=== PATIENT | male | born 1975 | race Caucasian/White ===

== ENCOUNTER 2018-10-31 06:15 | Inpatient (IN) | payer OTHER ==
[2018-10-27 15:41] VITALS: BMI 33.9
[2018-10-31] MEDS ORDERED: fentaNYL CITRATE 250 MCG/5 ML VIAL ONE (07:18)
[2018-10-31] MEDS ORDERED: DEXAMETHASONE SOD PHOSPHATE 4 MG/1 ML VIAL ONE (07:19)
[2018-10-31] MEDS ORDERED: PROPOFOL 20 ML ONE ×19 (07:19→11:54)
[2018-10-31] MEDS ORDERED: MIDAZOLAM HCL 2 MG/2 ML SINGLE DOSE VIAL ONE (07:19)
[2018-10-31] MEDS ORDERED: SUCCINYLCHOLINE CHLORIDE 200 MG/10 ML VIAL ONE (07:19)
[2018-10-31] MEDS ORDERED: ONDANSETRON 4 MG/2 ML VIAL ONE (07:19)
[2018-10-31] MEDS ORDERED: ROCURONIUM BROMIDE 50 MG/5 ML VIAL ONE ×2 (07:19→09:28)
[2018-10-31] MEDS ORDERED: LIDOCAINE HCL/PF 2% SDV 5ML VIAL ONE (07:19)
[2018-10-31] MEDS ORDERED: BUPIVACAINE HCL/PF 0.25% (2.5MG/ML) 10 ML VIAL ONE ×2 (07:45→07:50)
[2018-10-31] MEDS ORDERED: HEPARIN NA (PORCINE) 5,000 UNITS/ML 1ML VIAL ONE ×2 (07:45→07:50)
[2018-10-31] MEDS ORDERED: BENZOIN TINCTURE SWABSTICK TP ONE ×2 (07:45→07:51)
[2018-10-31] MEDS ORDERED: THROMBIN (BOVINE) 5,000 UNIT VIAL TP ONE ×3 (07:46→09:32)
[2018-10-31] MEDS ORDERED: TRANEXAMIC ACID 1000 MG/10 ML VIAL ONE ×2 (07:51→10:11)
[2018-10-31] MEDS ORDERED: BUPIVACAINE HCL/PF 0.5% (5MG/ML) 10 ML VIAL ONE (07:51)
[2018-10-31] MEDS ORDERED: VANCOMYCIN 1,000 MG VIAL (RESTRICTED TO ID ONLY) ONE (07:51)
[2018-10-31] MEDS ORDERED: ceFAZolin SODIUM 1 GM VIAL ONE ×2 (07:51→11:19)
[2018-10-31] MEDS ORDERED: VANCOMYCIN 1,000 MG VIAL (RESTRICTED TO ID ONLY) IVPB ONE (07:55)
[2018-10-31] MEDS ORDERED: ceFAZolin SODIUM 1 GM VIAL IVPB ONE ×2 (08:20→11:22)
[2018-10-31] MEDS ORDERED: BUPIVACAINE LIPOSOME/PF (EXPAREL) 266 MG/20 ML VIAL NR ONE (08:30)
[2018-10-31] MEDS ORDERED: BUPIVACAINE HCL/PF 0.25% (2.5MG/ML) 10 ML VIAL IJ ONE ×2 (09:32→11:54)
[2018-10-31] MEDS ORDERED: BUPIVACAINE LIPOSOME/PF (EXPAREL) 266 MG/20 ML VIAL IJ ONE ×2 (09:32→11:54)
[2018-10-31 11:23] LABS: MCH 29.9 pg (25.7-33.7); MCHC 34.7 g/dl (32.0-35.9); MEAN CELL VOLUME 86.4 fl (80-96); MEAN PLT VOLUME 12.9 fl (7.5-11.1); RDW 14.3 % (11.9-15.9); WHITE BLOOD COUNT 3.2 K/mm3 (4.0-10.0)
[2018-10-31 11:27] LABS: RBC 7.41 M/mm3 (4.00-5.60)
[2018-10-31 11:32] LABS: HEMOGLOBIN 22.2 GM/dL (11.7-16.9)
[2018-10-31 11:51] LABS: PLATELET COUNT 14 K/MM3 (134-434)
[2018-10-31] MEDS ORDERED: NEOSTIGMINE METHYLSULFATE 0.5 MG/1 ML - 10 ML MDV ONE (12:36)
[2018-10-31] MEDS ORDERED: GLYCOPYRROLATE 0.2 MG/1 ML VIAL ONE (12:37)
--- NOTE | 2018-10-31 13:05 | PN ---
Progress Note (short form) - Note Progress Note: 43M s/p L4, L5, S1 laminectomies; L3 laminotomy; L4-L5, L5-S1 discectomies; L4- L5, L5-S1 PLIF; insertion L4-L5, L5-S1 biomechanical devices; L4-L5, L5-S1 posterior arthrodesis; L4-L5, L5-S1 posterior instrumentation POD #0. -Pain control: per anaesthesia team; recommend COMPUTER NUMERICAL CONTROL OPERATOR; No NSAID's. -DVT PPx: - Mechanical only: BERITN's, SCD's. -Incentive spirometry q15min. -PT/OT/Rehab, OOB. -WBAT B/L LE. -q4h B/L LE NV checks. -Post-op antibiotics x 2 doses. -NPO until flatus. -f/u AM labs. -f/u drain output. -d/c Boland catheter when patient ambulating comfortably. -Care per ICU & medical hospitalist teams. -No bending, lifting more than 5lbs, or twisting x 6 months. -[facility] [place] [facility]; call for appointment; . -Will follow. Go Frias MD (Orthopaedic Surgery).
--- NOTE | 2018-10-31 13:09 | OP ---
Operative Note - Note: Operative Date: 10/31/18 Pre-Operative Diagnosis: 1. 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 2. L4-L5, L5-S1 stenosis with neurogenic claudication. 3. Segmental instability L4-S1 Operation: 1. L4, L5, S1 laminectomies. 2. L3 laminotomy. 3. L4-L5, L5-S1 discectomies. 4. L4-L5, L5-S1 PLIF. 5. Insertion L4-L5, L5-S1 biomechanical devices. 6. L4-L5, L5-S1 posterior arthrodesis. 7. L4-L5, L5-S1 posterior instrumentation. 8. Bone autograft. 9. Bone allograft. 10. Bone marrow aspiration. 11. Intra-operative biplanar fluoroscopy. 12. Intra-operative neural monitoring Post-Operative Diagnosis: Same as Pre-op Surgeon: Go Frias Repairer Maintenance Building: Wallace Frias Anesthesiologist/DAIRY TECHNOLOGIST: Alber Lua Anesthesia: General Specimens Removed: L4-L5, L5-S1 discs Estimated Blood Loss (mls): 1,200 Drains & Tubes with Location: 1 x superficial HemoVac Blood Volume Replaced (mls): 500 (Cell saver) Fluid Volume Replaced (mls): 200 (Crystalloid) Operative Report Dictated: Yes
[2018-10-31] MEDS ORDERED: diazePAM CARPU-JECT 10 MG/2 ML DISP.SYRIN IVPUSH PRN (13:11)
[2018-10-31] MEDS ORDERED: ONDANSETRON 4 MG/2 ML VIAL IVPUSH PRN (13:11)
[2018-10-31] MEDS ORDERED: HYDROmorphone *PCA* 10MG/50ML DISP.SYRIN PCA ONE ×2 (13:16→13:20)
[2018-10-31] MEDS ORDERED: ACETAMINOPHEN 1000 MG/100 ML VIAL (NON FORMULARY) IVPB ONE (13:30)
[2018-10-31] MEDS: LACTATED RINGERS SOLUTION 1,000 ML IV SCH ×2 (16:05→21:48)
--- NOTE | 2018-10-31 16:42 | CONSULT ---
Consultation: REQUESTING PROVIDER: Go Frias CONSULT REQUEST: We have been asked to medically evaluate this patient for s/p L3-S1 spinal Sx. HISTORY OF PRESENT ILLNESS: Patient is a 43 y/o M w/ PMHx chronic back pain s/p C3-C4 fusion w/ Dr. Frias 2 y/a, TMJ syndrome, migraines, GERD, HTN (not on medication w/ PCP's agreement), GERD, POD 0 s/p L4, L5, S1 laminectomies; L3 laminotomy; L4-L5, L5-S1 discectomies; L4-L5, L5-S1 PLIF; insertion L4-L5, L5-S1 biomechanical devices; L4-L5, L5-S1 posterior arthrodesis; L4-L5, L5-S1 posterior instrumentation. Awake and alert from PACU. On COAT PRESSER for pain control. Denies nausea. No other complaints. REVIEW OF SYSTEMS: As per HPI PHYSICAL EXAMINATION Vital Signs - 24 hr 10/31/18 10/31/18 10/31/18 06:48 13:07 13:20 Temperature 97.6 F 98.1 F Pulse Rate 77 80 62 Respiratory 20 16 16 Rate Blood Pressure 138/78 101/56 L 93/50 L O2 Sat by Pulse 99 98 98 Oximetry (%) 10/31/18 10/31/18 10/31/18 13:35 13:50 14:05 Temperature Pulse Rate 64 64 62 Respiratory 16 16 16 Rate Blood Pressure 94/50 L 93/64 95/60 O2 Sat by Pulse 98 98 98 Oximetry (%) 10/31/18 10/31/18 10/31/18 14:20 14:35 14:50 Temperature Pulse Rate 68 70 72 Respiratory 16 16 16 Rate Blood Pressure 95/60 94/62 87/50 L O2 Sat by Pulse 98 100 100 Oximetry (%) 10/31/18 10/31/18 10/31/18 15:05 15:20 15:35 Temperature Pulse Rate 74 72 72 Respiratory 16 16 16 Rate Blood Pressure 92/50 L 95/60 106/70 O2 Sat by Pulse 100 100 100 Oximetry (%) GENERAL: A&Ox3, NAD HEAD: NC/AT EYES: PERRLA, EOMI EARS, NOSE, THROAT: MMM NECK: Normal range of motion, supple without lymphadenopathy, JVD, or masses. LUNGS: Breath sounds equal, clear to auscultation bilaterally. No wheezes, and no crackles. No accessory muscle use. HEART: Regular rate and rhythm, normal S1 and S2 without murmur, rub or gallop. ABDOMEN: +bs, soft, NT, ND MUSCULOSKELETAL: Normal range of motion at all joints. Lumbar tenderness and pressure c/w s/p L3-S1 Sx. Surgical dressings c/d/i. UPPER EXTREMITIES: 2+ pulses, warm, well-perfused. No cyanosis. No clubbing. Cap refill <2 seconds. No peripheral edema. LOWER EXTREMITIES: 2+ pulses, warm, well-perfused. No calf tenderness. No peripheral edema. NEUROLOGICAL: mud analysis well logging operator, motor, sensory systems w/o focal deficit PSYCHIATRIC: Cooperative. Good eye contact. Appropriate mood and affect. SKIN: Warm, dry, normal turgor, no rashes or lesions noted. Laboratory Results - last 24 hr 10/31/18 10/31/18 10/31/18 06:26 06:45 10:30 WBC 3.2 L RBC 7.41 H Hgb 22.2 H* Hct 64.0 H MCV 86.4 MCH 29.9 MCHC 34.7 RDW 14.3 Plt Count 14 L* MPV 12.9 H Manual Slide Review Platelet Comment No clotting detected Blood Type A POSITIVE A POSITIVE Antibody Screen Negative Active Medications Generic Name Dose Route Start Last Admin Trade Name Delvinq PRN Reason Stop Dose Admin Acetaminophen 1,000 mg 10/31/18 13:15 Ofirmev Injection - IVPB 11/02/18 02:01 [facility] Cefazolin Sodium/Dextrose 2 gm 10/31/18 19:00 Ancef 2 Gm Premixed Ivpb - IVPB 11/01/18 18:59 [facility]H [facility] Chlorhexidine Gluconate 1 applic 10/31/18 22:00 Hibiclens For Decolonization - TP [facility] Diazepam 10 mg 10/31/18 13:11 Valium Injection - IVPUSH Q6H PRN MUSCLE SPASMS Fentanyl 50 mcg 10/31/18 14:50 Sublimaze Injection - IVPUSH [id number] PRN PAIN-PACU ORDER X 4 DOSES ONLY Hydromorphone HCl 10 mg 10/31/18 15:00 Dilaudid Granulator - COAT PRESSER 11/03/18 14:50 COAT PRESSER [facility] Protocol Lactated Ringer's 1,000 mls @ 125 mls/hr 10/31/18 13:15 Lactated Ringers Solution IV ASDIR JILLIAN Mupirocin 1 applic 10/31/18 22:00 Bactroban Ointment (For Decolonization) - NS 11/05/18 21:59 BID JILLIAN Ondansetron HCl 4 mg 10/31/18 13:11 Zofran Injection IVPUSH Q6H PRN NAUSEA AND/OR VOMITING ASSESSMENT/PLAN: 43 y/o M w/ PMHx chronic back pain s/p C3-C4 fusion w/ Dr. Frias 2 y/a, TMJ syndrome, migraines, GERD, HTN (not on medication w/ PCP's agreement), GERD, POD 0 s/p L4, L5, S1 laminectomies; L3 laminotomy; L4-L5, L5-S1 discectomies; L4 -L5, L5-S1 PLIF; insertion L4-L5, L5-S1 biomechanical devices; L4-L5, L5-S1 posterior arthrodesis; L4-L5, L5-S1 posterior instrumentation #POD 0 s/p L3-S1 laminectomies/laminotomy -pain control w/ COAT PRESSER, will gradually wean to PO meds on pain scale -NPO pending flatus -incentive spirometry -neurovasc checks q4h -PT/OT -WBAT -d/c Boland when ambulating comfortably -Hemovac drain in place, f/u output -2 doses post-op ABx ordered -DVT PPx: TEDs/SCDs, no pharmacologic AC -LR @ 125 -Discharge planning: f/u 11/11/2018 at [facility] office; call for appointment; . -initial CBC is spurious, chart review indicates cell counts wnl, baseline CBC and BMP ordered from ICU, will trend CBC/BMP -Replete lytes as needed -PCP is Dr. Adriana Dillard at [facility] #code -full #Dispo: We will continue to follow the patient in the ICU. Thank you for this consultative opportunity. Visit type - Emergency Visit Emergency Visit: No - New Patient This patient is new to me today: Yes Date on this admission: 10/31/18 - Critical Care Critical Care patient: Yes Total Critical Care Time (in minutes): 40 Critical Care Statement: The care of this patient involved high complexity decision making to prevent further life threatening deterioration of the patient 's condition and/or to evaluate & treat vital organ system(s) failure or risk of failure.
[2018-10-31] MEDS ORDERED: diazePAM 5 MG TABLET PO PRN (16:56)
[2018-10-31] MEDS: ACETAMINOPHEN 1000 MG/100 ML VIAL (NON FORMULARY) IVPB SCH ×2 (17:24→19:57)
[2018-10-31 17:51] LABS: BASO % 0.2 % (0-2.0); HEMATOCRIT 41.2 % (35.4-49); LYMPH % 4.1 % (8-40); MEAN CELL VOLUME 88.1 fl (80-96); MEAN PLT VOLUME 7.9 fl (7.5-11.1); MONO % 4.8 % (3.8-10.2); NEUT % 90.9 % (42.8-82.8); PLATELET COUNT 254 K/MM3 (134-434); RBC 4.68 M/mm3 (4.00-5.60); RDW 14.2 % (11.9-15.9); WHITE BLOOD COUNT 15.9 K/mm3 (4.0-10.0)
[2018-10-31] MEDS: ceFAZolin 2 GRAM PREMIX BAG IVPB SCH (18:26)
[2018-10-31 18:43] LABS: ANION GAP 5 MMOL/L (8-16); BLOOD UREA NITROGEN 19 mg/dL (7-18); CALCIUM 7.6 mg/dL (8.5-10.1); CHLORIDE 107 mmol/L (98-107); CO2 26 mmol/L (21-32); CREATININE 1.3 mg/dL (0.55-1.3); GLUCOSE,RANDOM 129 mg/dL (74-106); POTASSIUM 4.9 mmol/L (3.5-5.1); SODIUM 138 mmol/L (136-145)
[2018-10-31] MEDS: HYDROmorphone *PCA* 10MG/50ML DISP.SYRIN PCA SCH (19:58)
[2018-10-31] MEDS: MUPIROCIN 2% TOPICAL OINTMENT FOR DECOLONIZATION NS SCH (21:45)
[2018-10-31] MEDS: CHLORHEXIDINE GLUCONATE 4% CLEANSER FOR DECOLONIZATION TP SCH (21:45)
[2018-11-01] MEDS: ACETAMINOPHEN 1000 MG/100 ML VIAL (NON FORMULARY) IVPB SCH ×3 (01:12→17:52)
[2018-11-01] MEDS: ceFAZolin 2 GRAM PREMIX BAG IVPB SCH ×2 (02:15→10:21)
[2018-11-01] MEDS ORDERED: diphenhydrAMINE HCL 25 MG CAPSULE (FP) PO PRN (05:40)
[2018-11-01 05:52] LABS: BASO % 0.3 % (0-2.0); EOS % 0.2 % (0-4.5); HEMATOCRIT 38.5 % (35.4-49); HEMOGLOBIN 12.4 GM/dL (11.7-16.9); LYMPH % 8.2 % (8-40); MCH 28.9 pg (25.7-33.7); MCHC 32.1 g/dl (32.0-35.9); MEAN CELL VOLUME 89.9 fl (80-96); MEAN PLT VOLUME 8.3 fl (7.5-11.1); NEUT % 84.3 % (42.8-82.8); PLATELET COUNT 217 K/MM3 (134-434); RBC 4.28 M/mm3 (4.00-5.60); RDW 14.2 % (11.9-15.9); WHITE BLOOD COUNT 12.9 K/mm3 (4.0-10.0)
[2018-11-01] MEDS: LACTATED RINGERS SOLUTION 1,000 ML IV SCH ×2 (06:16→23:17)
[2018-11-01 07:25] LABS: ANION GAP 4 MMOL/L (8-16); BLOOD UREA NITROGEN 16 mg/dL (7-18); CALCIUM 7.8 mg/dL (8.5-10.1); CHLORIDE 101 mmol/L (98-107); CO2 31 mmol/L (21-32); CREATININE 1.1 mg/dL (0.55-1.3); GLUCOSE,RANDOM 116 mg/dL (74-106); MAGNESIUM 1.9 mg/dL (1.8-2.4); PHOSPHOROUS 3.6 mg/dL (2.5-4.9); POTASSIUM 4.2 mmol/L (3.5-5.1); SODIUM 136 mmol/L (136-145)
[2018-11-01] MEDS: oxyCODONE HCL 5 MG TABLET PO PRN ×2 (08:22→20:22)
--- NOTE | 2018-11-01 08:49 | OP ---
DATE OF OPERATION: 10/31/2018 SURGEON: Go Frias MD ACCOUNT RESOLUTION EXPERT: Wallace Frias MD PREOPERATIVE DIAGNOSIS: Disk prolapse at L4-5, L5-S1 with associated spinal stenosis and segmental instability. POSTOPERATIVE DIAGNOSIS: Disk prolapse at L4-5, L5-S1 with associated spinal stenosis and segmental instability. OPERATION PERFORMED: 1. Laminectomy, L4; laminectomy, L5. 2. Diskectomy, L4-5, L5-S1. 3. Posterior lumbar interbody fusion with cages, L4-5, L5-S1. 4. Pedicle screw instrumentation, L4, L4, S1. 5. Posterolateral arthrodesis, L4, L5, S1. 6. Use of bone marrow aspirate concentrate. 7. Use of autologous as well as allograft. 8. Use of biplanar fluoroscopy and intraoperative neuromonitoring. 9. Complex wound closure, 20 cm. ANESTHESIA: General. ANTIBIOTICS GIVEN: Kefzol 2 g, vancomycin 1 g preoperatively; Kefzol 1 g given at the time of pedicle screw instrumentation. BLOOD LOSS: Approximately 1200 mL; 500 mL Cell Saver given back to the patient. OPERATION DETAILS: Patient correctly identified, brought to the operating room. Lumbar spine was prepped, free draped in the routine manner with Betadine scrub solution, wiped off with alcohol. DuraPrep applied. Timeout was called. Imaging was available for intraoperative evaluation. A Bc table was utilized. Patient was placed prone, under general anesthesia. All bony elements and bony points padded appropriately, eyes free. Eyes were paid attention to and free. Anti- Trendelenburg of 10 degrees utilized. Verification of the levels with the lateral fluoroscopic x-ray to help for the skin incision. This enabled an easy exposure from the tip of the spinous process of L3 down to the tip of the spinous process of S1. Subperiosteal dissection done of the spinous process over the lamina, across the facet joint out to the tips of the transverse processes. Verification of the levels with utilization of anatomical guidelines as well as biplanar fluoroscopy. Using a Leksell, the interspinous ligaments were resected. The Madison enabled a clean resection of the spinous processes for bone graft. The laminae of L4-5 were resected using Leksell rongeurs, Kerrison, and upcuts of numbers L4, L5, and S1. Using osteotomes, the pars interarticularis was incised longitudinally right down to the inferior facet, and this was imploded inwards as was both the left- and right- hand sides of L4 and L5. This enabled a complete opening of the thecal sac appropriately. The disks of the L4-5 on the left were much more easily amenable to exposure. Epidural veins were dealt with with bipolar Bovie. The disks of L4-5 and L5-S1 were identified. They were re-evaluated once again with a lateral fluoroscopic x- ray. The disk itself was then resected as far as an annulotomy with 11 blade performed. The entire disk was resected using pituitary, rongeurs, teo, and appropriate serrated curettes and straight and up-and-down pituitary rongeurs. Each disk space was completely emptied out. The disks were abnormal. There was interval confirmatory histopathology. The L4-5 disk was shaved to size 12, and a size 13 Fortilink space inserted. The spacer was first inserted, and this itself was packed with bone graft, but the actual interdisk space was packed with bone graft. This was autologous bone graft harvested from the posterior elements using the Midas Kilo mill. Appropriate packing of the disks and insertion of a cage brought about a solid fixation of the cage and excellent reconstitution of the disk height as seen on the lateral fluoroscopic x-ray, reconstitution of the lordosis as well. The L5-S1 disk was dealt with from the right-hand side in exactly the same manner except in the size measured was a size 11 Fortilink spacer and also packed with bone graft. No complications in neuromonitoring throughout this procedure. The dura remained fully intact and uncomplicated. Pedicle screws were then inserted at L4, L5, S1 using anatomical guidelines. Each pedicle was drilled with a 4.5 drill. The screws measured 45 x 6.5 (Precision Spine). Each pedicle was drilled, palpated with a ball-tip feeler. Screws measured 45 x 6.5 for L4 and L5 and size 40 x 7.5 for the sacral screws. Solid fixation for each screw. Each screw measured and tested with intraoperative neuromonitoring and verified with lateral and AP fluoroscopic x- rays, revealed excellent seating of screws, no complications, and the neuromonitoring readings were well above 20 mA for all screws except in the right S1 which was 16. The rods, these measured 65 mm, were contoured, bent, and fixed with caps. Solid fixation with the appropriate caps and torque device utilized accordingly. One crosslink applied. This gave a solid construct. This completed the instrumentation. The muscle was gently retracted over the transverse processes. This brought about an easy accessible bone grafting with bone marrow aspirate concentrate that was harvested separately from the left posterior ilium; 60 mL withdrawn, spun down for the CD34 cells. These were mixed with the graft, and the graft packed into the intertransverse plane from L4-5 and into the ala of the sacrum, left and right- hand side. No complications. The wounds were thoroughly lavaged throughout. Exparel was seated into the muscle for pain management. Closure: Muscle 1 Vicryl, fascia 1 Vicryl, subcutaneous 1-0 and 2-0 Vicryl, skin 3-0 Monocryl with Steri-Strips and bandage. A 1/8-inch Hemovac subcutaneously x1. Operation went well. No complications. MD LONG Rosario/[id number] MTDD
--- NOTE | 2018-11-01 08:57 | PN ---
Physical Exam: SUBJECTIVE: Patient seen and examined at bedside. C/o pain at surgical site. Urinating well in white, has not been out of bed yet. Has passed flatus. OBJECTIVE: Vital Signs Period Temp Pulse Resp BP Sys/Rowe Pulse Ox Last 24 Hr 97.6 F-98.9 F 62-106 12-20 87-131/50-96 98-100 GENERAL: A&Ox3, NAD HEAD: NC/AT EYES: PERRLA, EOMI EARS, NOSE, THROAT: MMM NECK: Normal range of motion, supple without lymphadenopathy, JVD, or masses. LUNGS: Breath sounds equal, clear to auscultation bilaterally. No wheezes, and no crackles. No accessory muscle use. HEART: Regular rate and rhythm, normal S1 and S2 without murmur, rub or gallop. ABDOMEN: +bs, soft, NT, ND MUSCULOSKELETAL: Normal range of motion at all joints. Lumbar tenderness and pressure c/w s/p L3-S1 Sx. Surgical dressings c/d/i. EXTREMITIES: 2+ pulses, warm, well-perfused. No calf tenderness. No peripheral edema. NEUROLOGICAL: test baker, motor, sensory systems w/o focal deficit PSYCHIATRIC: Cooperative. Good eye contact. Appropriate mood and affect. SKIN: Warm, dry, normal turgor, no rashes or lesions noted. Laboratory Results - last 24 hr 10/31/18 10/31/18 10/31/18 10:30 16:00 16:00 WBC 3.2 L 15.9 H RBC 7.41 H 4.68 Hgb 22.2 H* 14.0 Hct 64.0 H 41.2 D MCV 86.4 88.1 MCH 29.9 30.0 MCHC 34.7 34.0 RDW 14.3 14.2 Plt Count 14 L* 254 D MPV 12.9 H 7.9 D Absolute Neuts (auto) 14.4 H Neutrophils % 90.9 H Lymphocytes % 4.1 L Monocytes % 4.8 Eosinophils % 0.0 Basophils % 0.2 Nucleated RBC % 0 Manual Slide Review Platelet Comment No clotting detected Sodium 138 Potassium 4.9 Chloride 107 Carbon Dioxide 26 Anion Gap 5 L BUN 19 H Creatinine 1.3 Creat Clearance w eGFR 59.97 Random Glucose 129 H Calcium 7.6 L Phosphorus Magnesium 11/01/18 11/01/18 05:15 05:15 WBC 12.9 H RBC 4.28 Hgb 12.4 Hct 38.5 MCV 89.9 MCH 28.9 MCHC 32.1 RDW 14.2 Plt Count 217 MPV 8.3 Absolute Neuts (auto) 10.9 H Neutrophils % 84.3 H Lymphocytes % 8.2 D Monocytes % 7.0 Eosinophils % 0.2 D Basophils % 0.3 Nucleated RBC % 0 Manual Slide Review Platelet Comment Sodium 136 Potassium 4.2 Chloride 101 Carbon Dioxide 31 Anion Gap 4 L BUN 16 Creatinine 1.1 Creat Clearance w eGFR > 60 Random Glucose 116 H Calcium 7.8 L Phosphorus 3.6 Magnesium 1.9 Active Medications Generic Name Dose Route Start Last Admin Trade Name Freq PRN Reason Stop Dose Admin Acetaminophen 1,000 mg 10/31/18 13:15 11/01/18 01:12 Ofirmev Injection - IVPB 11/02/18 02:01 1,000 mg Q8H-IV JILLIAN Administration Cefazolin Sodium/Dextrose 2 gm 10/31/18 19:00 11/01/18 02:15 Ancef 2 Gm Premixed Ivpb - IVPB 11/01/18 18:59 2 gm Q8H JILLIAN Administration Chlorhexidine Gluconate 1 applic 10/31/18 22:00 10/31/18 21:45 Hibiclens For Decolonization - TP 1 applic HS JILLIAN Administration Diazepam 10 mg 10/31/18 16:56 Valium - PO 11/03/18 16:56 Q6H PRN MUSCLE SPASMS Diphenhydramine HCl 50 mg 11/01/18 05:40 11/01/18 06:15 Benadryl - PO 50 mg Q6H PRN Administration FOR ITCHING Hydromorphone HCl 10 mg 10/31/18 15:00 10/31/18 19:58 Dilaudid Staff Nurse Icu Resource Team - NATIONAL INSURANCE OFFICER 11/03/18 14:50 Not Given NATIONAL INSURANCE OFFICER JILLIAN Protocol Lactated Ringer's 1,000 mls @ 125 mls/hr 10/31/18 13:15 11/01/18 06:16 Lactated Ringers Solution IV 125 mls/hr ASDIR JILLIAN Administration Mupirocin 1 applic 10/31/18 22:00 10/31/18 21:45 Bactroban Ointment (For Decolonization) - NS 11/05/18 21:59 1 applic BID JILLIAN Administration Ondansetron HCl 4 mg 10/31/18 13:11 Zofran Injection IVPUSH Q6H PRN NAUSEA AND/OR VOMITING Oxycodone HCl 5 mg 11/01/18 07:57 11/01/18 08:22 Roxicodone - PO 5 mg Q4H PRN Administration PAIN LEVEL 1-5 Oxycodone HCl 10 mg 11/01/18 07:57 Roxicodone - PO Q4H PRN PAIN LEVEL 6-10 ASSESSMENT/PLAN: 43 y/o M w/ PMHx chronic back pain s/p C3-C4 fusion w/ Dr. Frias 2 y/a, TMJ syndrome, migraines, GERD, HTN (not on medication w/ PCP's agreement), GERD, POD #1 s/p L4, L5, S1 laminectomies; L3 laminotomy; L4-L5, L5-S1 discectomies; L4-L5, L5-S1 PLIF; insertion L4-L5, L5-S1 biomechanical devices; L4-L5, L5-S1 posterior arthrodesis; L4-L5, L5-S1 posterior instrumentation #POD 1 s/p L3-S1 laminectomies/laminotomy -pain control w/ NATIONAL INSURANCE OFFICER, weaning to oxycodone per pain scale -IV Benadryl PRN for pruritus -adv diet as tolerated -incentive spirometry -neurovasc checks q4h -PT/OT -WBAT -d/c White when ambulating comfortably -Hemovac drain in place, 90cc output -2 doses post-op ABx ordered -DVT PPx: TEDs/SCDs, no pharmacologic AC -LR @ 125 -Discharge planning: f/u 11/11/2018 at [facility] office; call for appointment; . -Replete lytes as needed -PCP is Dr. Adriana Cohn at [facility] #code -full #Dispo -cleared by Sx for transfer to med/surg Visit type - Emergency Visit Emergency Visit: No - New Patient This patient is new to me today: No - Critical Care Critical Care patient: Yes Total Critical Care Time (in minutes): 40 Critical Care Statement: The care of this patient involved high complexity decision making to prevent further life threatening deterioration of the patient 's condition and/or to evaluate & treat vital organ system(s) failure or risk of failure.
--- NOTE | 2018-11-01 11:26 | PN ---
Teaching Attending Note Name of Resident: Wallace Landin ATTENDING PHYSICIAN STATEMENT I saw and evaluated the patient. I reviewed the resident's note and discussed the case with the resident. I agree with the resident's findings and plan as documented. SUBJECTIVE: Pt seen and examined in the ICU. Still with significant pain. No chest pain or shortness of breath. No nausea or vomiting. OBJECTIVE: Vital Signs Period Temp Pulse Resp BP Sys/Rowe Pulse Ox Last 24 Hr 97.6 F-98.9 F 62-106 12-20 87-131/50-96 98-100 Intake & Output 10/29/18 10/30/18 10/31/18 11/01/18 23:59 23:59 23:59 23:59 Intake Total 3475 1525 Output Total 1820 990 Balance 1655 535 Gen: NAD at rest Heart: RRR Lung: decreased breath sounds at the bases Abd: soft, nontender Ext: no edema Drain with serosanguinous fluid CBC, BMP 11/01/18 05:15 11/01/18 05:15 Active Medications Acetaminophen (Ofirmev Injection -) 1,000 mg IVPB Q8H-IV JILLIAN Stop: 11/02/18 02:01 Last Admin: 11/01/18 01:12 Dose: 1,000 mg Cefazolin Sodium/Dextrose (Ancef 2 Gm Premixed Ivpb -) 2 gm IVPB Q8H JILLIAN Stop: 11/01/18 18:59 Last Admin: 11/01/18 10:21 Dose: 2 gm Chlorhexidine Gluconate (Hibiclens For Decolonization -) 1 applic TP HS JILLIAN Last Admin: 10/31/18 21:45 Dose: 1 applic Diazepam (Valium -) 10 mg PO Q6H PRN PRN Reason: MUSCLE SPASMS Stop: 11/03/18 16:56 Diphenhydramine HCl (Benadryl Injection -) 50 mg IVPUSH Q6H PRN PRN Reason: FOR ITCHING Hydromorphone HCl (Dilaudid Kitchen Assistant -) 10 mg SODDER SODDER JILLIAN; Protocol Stop: 11/03/18 14:50 Last Admin: 10/31/18 19:58 Dose: Not Given Lactated Ringer's (Lactated Ringers Solution) 1,000 mls @ 125 mls/hr IV ASDIR JILLIAN Last Admin: 11/01/18 06:16 Dose: 125 mls/hr Mupirocin (Bactroban Ointment (For Decolonization) -) 1 applic NS BID JILLIAN Stop: 11/05/18 21:59 Last Admin: 10/31/18 21:45 Dose: 1 applic Ondansetron HCl (Zofran Injection) 4 mg IVPUSH Q6H PRN PRN Reason: NAUSEA AND/OR VOMITING Oxycodone HCl (Roxicodone -) 5 mg PO Q4H PRN PRN Reason: PAIN LEVEL 1-5 Last Admin: 11/01/18 08:22 Dose: 5 mg Oxycodone HCl (Roxicodone -) 10 mg PO Q4H PRN PRN Reason: PAIN LEVEL 6-10 ASSESSMENT AND PLAN: Lumbar Spinal Stenosis with Radiculopathy and Neurogenic Claudication s/p L5-S1 Laminectomies/PLIF/Biomechanical Device Insertion - pain control - incentive spirometry - bowel regimen - d/c white when OOB - PO as tolerated - DVT prophylaxis - can monitor on floor
[2018-11-01] MEDS: MUPIROCIN 2% TOPICAL OINTMENT FOR DECOLONIZATION NS SCH ×2 (12:23→22:45)
--- NOTE | 2018-11-01 14:13 | PATH ---
Surgical Pathology Report Patient Name: JAMSHID DURÁN [facility]. Rec. #: [id number] /Age/Gender: 1975 (Age: 43) / M Account: [id number] Location: [facility] INFORMATION DEVELOPER Taken: 10/31/2018 Received: 10/31/2018 Reported: 11/01/2018 Physicians: Go Frias M.D. Specimen(s) Received L4-S1 DISC Clinical History Spinal stenosis Final Diagnosis DISC, L4-S1, DISCECTOMY AND LAMINECTOMY: BENIGN INTERVERTEBRAL DISC TISSUE AND BONE. Electronically Signed Monica Lobo M.D. Gross Description Received in formalin labeled "L4-S1 disc," is a 5.5 x 3.5 x 0.4 cm aggregate of ferrari-red fragments of fibrocartilaginous tissue. A guest relations representative portion is submitted in one cassette. DL/10/31/201810/31/2018
[2018-11-01] MEDS ORDERED: LIDOCAINE 5% TOPICAL PATCH TP ONE (14:15)
--- NOTE | 2018-11-01 14:40 | PN ---
Progress Note (short form) - Note Progress Note: Anesthesia POD#1 S/P L5-S1 Posterior Fusion under GETA VSS,pain is moderately controlled by Dilaudid PLANNING CONSULTANT' some nausea,no vomiting. No complications from anesthesia seen. Leonor Cai MD.
[2018-11-01] MEDS ORDERED: traMADol HCL 50 MG TABLET PO PRN (14:41)
[2018-11-01] MEDS: HYDROmorphone *PCA* 10MG/50ML DISP.SYRIN PCA SCH (15:22)
[2018-11-01] MEDS ORDERED: DOCUSATE SODIUM 100 MG CAPSULE (FP) PO STA (17:12)
--- NOTE | 2018-11-01 17:14 | PN ---
Progress Note, Physician Chief Complaint: Chronic lower back pain History of Present Illness: Pre-Operative Diagnosis: 1. 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 2. L4-L5, L5-S1 stenosis with neurogenic claudication. 3. Segmental instability L4-S1 Operation: 1. L4, L5, S1 laminectomies. 2. L3 laminotomy. 3. L4-L5, L5-S1 discectomies. 4. L4-L5, L5-S1 PLIF. 5. Insertion L4-L5, L5-S1 biomechanical devices. 6. L4-L5, L5-S1 posterior arthrodesis. 7. L4-L5, L5-S1 posterior instrumentation. 8. Bone autograft. 9. Bone allograft. 10. Bone marrow aspiration. 11. Intra-operative biplanar fluoroscopy. 12. Intra-operative neural monitoring - Current Medication List Current Medications: Active Medications Acetaminophen (Ofirmev Injection -) 1,000 mg IVPB Q8H-IV JILLIAN Stop: 11/02/18 02:01 Last Admin: 11/01/18 12:23 Dose: 1,000 mg Cefazolin Sodium/Dextrose (Ancef 2 Gm Premixed Ivpb -) 2 gm IVPB Q8H JILLIAN Stop: 11/01/18 18:59 Last Admin: 11/01/18 10:21 Dose: 2 gm Chlorhexidine Gluconate (Hibiclens For Decolonization -) 1 applic TP HS [facility] Last Admin: 10/31/18 21:45 Dose: 1 applic Diazepam (Valium -) 10 mg PO Q6H PRN PRN Reason: MUSCLE SPASMS Stop: 11/03/18 16:56 Diphenhydramine HCl (Benadryl Injection -) 50 mg IVPUSH Q6H PRN PRN Reason: FOR ITCHING Hydromorphone HCl (Dilaudid Shipping And Receiving Associate -) 10 mg GANTRY CRANE OPERATOR GANTRY CRANE OPERATOR JILLIAN; Protocol Stop: 11/03/18 14:50 Last Admin: 11/01/18 15:22 Dose: Not Given Lactated Ringer's (Lactated Ringers Solution) 1,000 mls @ 125 mls/hr IV ASDIR JILLIAN Last Admin: 11/01/18 06:16 Dose: 125 mls/hr Miscellaneous (Lidoderm Patch Removal) 1 each ONCE ONE Stop: 11/01/18 22:01 Mupirocin (Bactroban Ointment (For Decolonization) -) 1 applic NS BID [facility] Stop: 11/05/18 21:59 Last Admin: 11/01/18 12:23 Dose: 1 applic Ondansetron HCl (Zofran Injection) 4 mg IVPUSH Q6H PRN PRN Reason: NAUSEA AND/OR VOMITING Oxycodone HCl (Roxicodone -) 5 mg PO Q4H PRN PRN Reason: PAIN LEVEL 1-5 Last Admin: 11/01/18 08:22 Dose: 5 mg Oxycodone HCl (Roxicodone -) 10 mg PO Q4H PRN PRN Reason: PAIN LEVEL 6-10 Senna/Docusate Sodium (Pericolace -) 2 tablet PO HS [facility] Stop: 11/02/18 12:46 Tramadol HCl (Ultram -) 50 mg PO Q6H PRN PRN Reason: PAIN LEVEL 4 - 6 - Objective Vital Signs: Vital Signs Temperature 98.8 F 11/01/18 14:00 Pulse Rate 94 H 11/01/18 15:33 Respiratory Rate 16 11/01/18 15:33 Blood Pressure 101/69 11/01/18 15:33 O2 Sat by Pulse Oximetry (%) 100 11/01/18 08:52 Constitutional: Yes: Well Nourished, No Distress, Calm Eyes: Yes: WNL, Conjunctiva Clear, EOM Intact, PERRL HENT: Yes: Atraumatic, Normocephalic Neck: Yes: WNL, Supple, Trachea Midline Cardiovascular: Yes: Regular Rate and Rhythm Respiratory: Yes: Regular, CTA Bilaterally Gastrointestinal: Yes: Normal Bowel Sounds, Soft ...Rectal Exam: Yes: Deferred Genitourinary: Yes: Boland Present Musculoskeletal: Yes: Back Pain, Muscle Pain Extremities: Yes: WNL Edema: No Peripheral Pulses WNL: Yes Peripheral Pulses: Left Radial: 2+, Right Radial: 2+, Left Doralis Pedis: 2+, Right Dorsalis Pedis: 2+ Integumentary: Yes: WNL Wound/Incision: Yes: Clean/Dry, Other (KEN drain in place.) Neurological: Yes: Alert, Oriented ...Motor Strength: LUE, LLE, RUE, RLE Psychiatric: Yes: Alert, Oriented Labs: CBC, BMP 11/01/18 05:15 11/01/18 05:15 Problem List - Problems (1) S/P laminectomy Assessment/Plan: continue dilaudid GANTRY CRANE OPERATOR PRN Oxycodone 10mg Q4hrs Pt reports continued pain, he has not been dosed valium for muscle spams. Pt ordered for 10mg, he prefers to take home dose of 5mg. Code(s): Z98.890 - OTHER SPECIFIED POSTPROCEDURAL STATES (2) S/P diskectomy Assessment/Plan: continue w/ PT Benadryl 50mg Q6h PRN itching Cefazolin 2g q8hrs PPX encourage PO fluids progress diet as tolerated Code(s): Z98.890 - OTHER SPECIFIED POSTPROCEDURAL STATES (3) Pain Assessment/Plan: Incentive spirometry OOB to chair with assistance Code(s): R52 - PAIN, UNSPECIFIED (4) Prophylactic measure Assessment/Plan: bowel regimen with senna and colace venodynes while in bed and seated Code(s): Z29.9 - ENCOUNTER FOR PROPHYLACTIC MEASURES, UNSPECIFIED Impression/Plan Impression/Plan: Full code Transfer to step down floor Home when stable for discharge no SW issues identified Visit type - Emergency Visit Emergency Visit: No - New Patient This patient is new to me today: Yes Date on this admission: 11/09/18 - Critical Care Critical Care patient: Yes Total Critical Care Time (in minutes): 30 Critical Care Statement: The care of this patient involved high complexity decision making to prevent further life threatening deterioration of the patient 's condition and/or to evaluate & treat vital organ system(s) failure or risk of failure. - Discharge Referral Referred to [facility] No
[2018-11-01] MEDS: diazePAM 5 MG TABLET PO SCH ×3 (17:41→21:18)
--- NOTE | 2018-11-01 18:35 | PN ---
Progress Note (short form) - Note Progress Note: 43M s/p L4-S1 laminectomies; L3 partial laminectomy; L4-L5, & L5-S1 PLIF, L4-S1 PISF POD #1. Pain well controlled. No acute events overnight. Pt. reports post-operative total resolution of bilateral lower extremity radiculopathy (pain, numbness, and tingling). Pt. denies overnight history of headaches, chest pain, shortness of breath, nausea, vomiting, chills, & sweats. (+) Boland; (+) Flatus; (-) BM. Tolerating diet. All labs and vitals reviewed. PE: AAO x 3, NAD. L-Spine: Incision, dressing C/D/I. B/L LE M: L2-S1 intact. B/L LE S: L2-S1 2/2. 45F doing well s/p L4-S1 laminectomies; L3 partial laminectomy; L4-L5, & L5-S1 PLIF, L4-S1 PISF POD #1. -Pain control: per anaesthesia team. -DVT PPx: - Mechanical only: BERTIN's, SCD's. -Incentive spirometry q15min. -PT/OT/Rehab, OOB. -WBAT B/L LE. -q4h B/L LE NV checks. -Raised toilet seat. -Diet as tolerated. -f/u drain output. -Care per ICU & medical hospitalist team. -Discharge planning: f/u 7-10 days after discharge at [facility] office; call for appointment; . -Will follow. Wallace Frias MD (Orthopaedic Surgery).
[2018-11-01] MEDS: SENNOSIDES/DOCUSATE COMBO (SENNA PLUS) TABLET (UD) PO SCH ×2 (21:14→21:18)
[2018-11-01] MEDS ORDERED: LIDOCAINE PATCH REMOVAL MC ONE (22:00)
[2018-11-01] MEDS: CHLORHEXIDINE GLUCONATE 4% CLEANSER FOR DECOLONIZATION TP SCH (22:45)
[2018-11-02] MEDS: oxyCODONE HCL 5 MG TABLET PO PRN ×3 (00:33→12:38)
[2018-11-02] MEDS: HYDROmorphone *PCA* 10MG/50ML DISP.SYRIN PCA SCH ×2 (01:17→16:22)
[2018-11-02] MEDS: ACETAMINOPHEN 1000 MG/100 ML VIAL (NON FORMULARY) IVPB SCH (02:18)
[2018-11-02] MEDS: diazePAM 5 MG TABLET PO SCH ×2 (05:15→15:32)
--- NOTE | 2018-11-02 07:25 | PN ---
Physical Exam: SUBJECTIVE: Patient seen and examined at bedside. No acute events overnight. Pt feels pain in lower back. OBJECTIVE: Vital Signs Temperature 98.9 F 11/02/18 06:00 Pulse Rate 90 11/02/18 06:47 Respiratory Rate 20 11/02/18 06:47 Blood Pressure 102/72 11/02/18 06:47 O2 Sat by Pulse Oximetry (%) 100 11/01/18 08:52 GENERAL: AAOx3. NAD. HEENT: AT/NC. EOMI. TE. EOMI. Moist mucus membranes. NECK: Trachea midline, full range of motion, supple. No LAD. LUNGS: CTA B/L. No wheezes noted. HEART: RRR. Normal S1, S2. No wheezes noted. ABDOMEN: Soft, NT/ND. +BS in all 4Q's. EXTREMITIES: 2+ pulses, warm, well-perfused, no edema. MSK: Surgical dressing c/d/i. NEUROLOGICAL: Cranial nerves II through XII grossly intact. Normal speech. Responds to commands. PSYCH: Normal mood, normal affect. SKIN: Warm, dry, normal turgor, no rashes or lesions noted CBC, BMP 11/01/18 05:15 11/01/18 05:15 Active Medications Chlorhexidine Gluconate (Hibiclens For Decolonization -) 1 applic TP HS [facility] Last Admin: 11/01/18 22:45 Dose: Not Given Diazepam (Valium -) 5 mg PO TID [facility] Last Admin: 11/02/18 05:15 Dose: 5 mg Diphenhydramine HCl (Benadryl Injection -) 50 mg IVPUSH Q6H PRN PRN Reason: FOR ITCHING Hydromorphone HCl (Dilaudid Equipment Service Engineer -) 10 mg MILLER HELPER DISTILLERY MILLER HELPER DISTILLERY JILLIAN; Protocol Stop: 11/03/18 14:50 Last Admin: 11/02/18 01:17 Dose: 10 mg Lactated Ringer's (Lactated Ringers Solution) 1,000 mls @ 125 mls/hr IV ASDIR [facility] Last Admin: 11/01/18 23:17 Dose: 125 mls/hr Mupirocin (Bactroban Ointment (For Decolonization) -) 1 applic NS BID [facility] Stop: 11/05/18 21:59 Last Admin: 11/01/18 22:45 Dose: Not Given Ondansetron HCl (Zofran Injection) 4 mg IVPUSH Q6H PRN PRN Reason: NAUSEA AND/OR VOMITING Oxycodone HCl (Roxicodone -) 5 mg PO Q4H PRN PRN Reason: PAIN LEVEL 1-5 Last Admin: 11/01/18 08:22 Dose: 5 mg Oxycodone HCl (Roxicodone -) 10 mg PO Q4H PRN PRN Reason: PAIN LEVEL 6-10 Last Admin: 11/02/18 05:15 Dose: 10 mg Senna/Docusate Sodium (Pericolace -) 2 tablet PO HS JILLIAN Stop: 11/02/18 12:46 Last Admin: 11/01/18 21:18 Dose: 2 tablet Tramadol HCl (Ultram -) 50 mg PO Q6H PRN PRN Reason: PAIN LEVEL 4 - 6 ASSESSMENT/PLAN: 43M w/ PMHx chronic back pain s/p C3-C4 fusion w/ Dr. Frias 2 y/a, TMJ syndrome , migraines, GERD, HTN (not on medication w/ PCP's agreement), GERD, POD 0 s/p L4, L5, S1 laminectomies; L3 laminotomy; L4-L5, L5-S1 discectomies; L4-L5, L5- S1 PLIF; insertion L4-L5, L5-S1 biomechanical devices; L4-L5, L5-S1 posterior arthrodesis; L4-L5, L5-S1 posterior instrumentation. #Lumbar stenosis/L4-S1 LE radiculopathy; s/p L4-S1 laminectomies; L3 partial laminectomy; L4-L5, & L5-S1 PLIF, L4-S1 PISF POD #1. -Oxycodone 10 mg PO Q4H for pain/5 Q4H for pain -Dilaudid MILLER HELPER DISTILLERY per anesthesia -Zofran 4 mg Q6H IVP for nausea -Tramadol 50 mg PO Q6H PRN for pain -Benadryl for itching #Prophylaxis DVT- SCDs/TEDs #FEN -LR @125 -recheck lytes in AM -regular diet dispo -cont to monitor on med-surg -full code Visit type - Emergency Visit Emergency Visit: Yes ED Registration Date: 10/31/18 Care time: The patient presented to the Emergency Department on the above date and was hospitalized for further evaluation of their emergent condition. - New Patient This patient is new to me today: Yes Date on this admission: 11/02/18 - Critical Care Critical Care patient: No
[2018-11-02] MEDS: LACTATED RINGERS SOLUTION 1,000 ML IV SCH ×2 (07:41→14:15)
[2018-11-02 07:46] LABS: BASO % 0.5 % (0-2.0); EOS % 0.3 % (0-4.5); HEMATOCRIT 34.9 % (35.4-49); HEMOGLOBIN 12.2 GM/dL (11.7-16.9); LYMPH % 15.4 % (8-40); MCH 30.8 pg (25.7-33.7); MEAN PLT VOLUME 8.2 fl (7.5-11.1); MONO % 9.6 % (3.8-10.2); NEUT % 74.2 % (42.8-82.8); PLATELET COUNT 220 K/MM3 (134-434); RBC 3.97 M/mm3 (4.00-5.60); RDW 13.9 % (11.9-15.9); WHITE BLOOD COUNT 11.2 K/mm3 (4.0-10.0)
[2018-11-02 08:19] LABS: ANION GAP 3 MMOL/L (8-16); BLOOD UREA NITROGEN 11 mg/dL (7-18); CALCIUM 8.2 mg/dL (8.5-10.1); CHLORIDE 100 mmol/L (98-107); CO2 34 mmol/L (21-32); CREATININE 1.1 mg/dL (0.55-1.3); GLUCOSE,RANDOM 91 mg/dL (74-106); PHOSPHOROUS 1.7 mg/dL (2.5-4.9); POTASSIUM 3.9 mmol/L (3.5-5.1); SODIUM 136 mmol/L (136-145)
[2018-11-02] MEDS: MUPIROCIN 2% TOPICAL OINTMENT FOR DECOLONIZATION NS SCH ×2 (10:36→22:44)
[2018-11-02] MEDS ORDERED: NAPH,MB-DB/K PH,MBDB POWDER PACKET PO ONE (11:48)
[2018-11-02] MEDS: POLYETHYLENE GLYCOL 3350 119 GM BTL PO SCH ×2 (15:22→22:45)
--- NOTE | 2018-11-02 19:06 | PN ---
Progress Note (short form) - Note Progress Note: POD#2 Awake Fully orientated Walked in the room C/O Incisional pain No leg pain Vitals All stable Abd Soft Passing gas did eat tolerated food well Neuro At baseline MSkeletal Wound dry drain removed ASSESS Post L4/5 L5/S1 PLIOF Doing well PLAN Pain mx Adding 2 doses Toradol PT Mobilize FWBAT Leave dressing until seen in the office next D/C planning ?Wednesday Sat
[2018-11-02] MEDS ORDERED: KETOROLAC TROMETHAMINE 30 MG/1 ML VIAL IVPUSH ONE (19:15)
--- NOTE | 2018-11-02 19:33 | PN ---
Teaching Attending Note Name of Resident: Joanne Engel ATTENDING PHYSICIAN STATEMENT I saw and evaluated the patient. I reviewed the resident's note and discussed the case with the resident. I agree with the resident's findings and plan as documented. SUBJECTIVE: no fever or chills . has pain in Lower back . OBJECTIVE: NAD CV: RRR Lungs: CTAB ABd: soft, NT, ND , NL BS Ext : no edema Neuro of LE : strength 4/5 in hip flexion limited due to pain. knee flexion and extension , ankle dorsiflexionand plantarflexion 5/5 reflexes 2+ L knee jerk and L1+ r . nL SENSATION TO LIGHT TOUCH lumbar area dressing ASSESSMENT AND PLAN: 43 Y/O man with h/o spinal stenosis, who presented for spinal surgery 1- s/p Lumbar sx : - pain control - need anesthesiologist advise. ? dc MULTIMEDIA PROGRAMMER - bowel regimen - PT 2- hypophosphatemia : replete SCDs HLOC
[2018-11-02] MEDS: CHLORHEXIDINE GLUCONATE 4% CLEANSER FOR DECOLONIZATION TP SCH (22:44)
[2018-11-02] MEDS ORDERED: ONDANSETRON 4 MG/2 ML VIAL IVPUSH PRN (23:01)
[2018-11-02] MEDS ORDERED: oxyCODONE HCL 5 MG TABLET PO PRN (23:01)
[2018-11-02] MEDS ORDERED: HYDROmorphone *PCA* 10MG/50ML DISP.SYRIN PCA SCH (23:01)
[2018-11-03 06:56] LABS: HEMATOCRIT 34.2 % (35.4-49); HEMOGLOBIN 11.2 GM/dL (11.7-16.9); MCH 28.9 pg (25.7-33.7); MCHC 32.8 g/dl (32.0-35.9); MEAN PLT VOLUME 7.9 fl (7.5-11.1); PLATELET COUNT 206 K/MM3 (134-434); RBC 3.89 M/mm3 (4.00-5.60); WHITE BLOOD COUNT 9.7 K/mm3 (4.0-10.0)
[2018-11-03 07:26] LABS: ANION GAP 5 MMOL/L (8-16); BLOOD UREA NITROGEN 11 mg/dL (7-18); CALCIUM 7.9 mg/dL (8.5-10.1); CHLORIDE 102 mmol/L (98-107); CO2 30 mmol/L (21-32); GLUCOSE,RANDOM 96 mg/dL (74-106); POTASSIUM 3.9 mmol/L (3.5-5.1); SODIUM 137 mmol/L (136-145)
[2018-11-03] MEDS: SENNOSIDES 8.6MG TABLET (FP) PO SCH ×2 (09:44→21:26)
[2018-11-03] MEDS: POLYETHYLENE GLYCOL 3350 119 GM BTL PO SCH ×2 (09:45→21:26)
[2018-11-03] MEDS: DOCUSATE SODIUM 100 MG CAPSULE (FP) PO SCH (09:45)
[2018-11-03] MEDS ORDERED: MUPIROCIN 2% TOPICAL OINTMENT FOR DECOLONIZATION NS SCH (10:00)
[2018-11-03] MEDS: oxyCODONE HCL 5 MG TABLET PO PRN ×2 (11:46→20:44)
--- NOTE | 2018-11-03 12:45 | PN ---
Teaching Attending Note Name of Resident: Joanne Engel ATTENDING PHYSICIAN STATEMENT I saw and evaluated the patient. I reviewed the resident's note and discussed the case with the resident. I agree with the resident's findings and plan as documented. SUBJECTIVE: No fever or chills . pa in responded to toradol last night. He feels better today. No N/V . no SOB . OBJECTIVE: NAD CV: RRR Lungs: CTAB ABd: soft, NT, ND , NL BS Ext: no edema Neuro of LE : strength 4/5 in hip flexion bilaterally . knee flexion and extension, ankle dorsiflexionand plantarflexion 5/5 reflexes 2+ knee jerk b/l. nL sensation to light touch. lumbar area dressing clean ASSESSMENT AND PLAN: 43 Y/O man with h/o spinal stenosis, who presented for spinal surgery 1- S/p Lumbar sx: - pain control. dc dilaudid STOCK LIFTER - cont oxy and tramadol - bowel regimen - PT - pt was looked up on [facility] : received percocet 10-325 mg q 4 hr on 10/03 , for a month. Prescriber: Dr. Frias. Reference #: [id number] - avoid frequent toradol doses due to risk of bleed. SCDs Dispo : Monitor off parenteral pain meds today. possible dc tomorrow
--- NOTE | 2018-11-03 17:22 | PN ---
Physical Exam: SUBJECTIVE: Patient seen and examined at bedside. No acute events overnight. Pain more controlled today. No BM yet but passing flatus. Denies cp, sob, abd pain, urinarysymptoms. Tolerating PO diet. OBJECTIVE: Vital Signs Temperature 98 F 11/03/18 16:15 Pulse Rate 105 H 11/03/18 16:15 Respiratory Rate 20 11/03/18 16:15 Blood Pressure 118/65 11/03/18 16:15 O2 Sat by Pulse Oximetry (%) 98 11/03/18 09:00 GENERAL: AAOx3. NAD. HEENT: AT/NC. EOMI. TE. EOMI. Moist mucus membranes. NECK: Trachea midline, full range of motion, supple. No LAD. LUNGS: CTA B/L. No wheezes noted. HEART: RRR. Normal S1, S2. No murmurs noted. ABDOMEN: Soft, NT/ND. +BS in all 4Q's. EXTREMITIES: 2+ pulses, warm, well-perfused, no edema. Surgical dressing c/d/i. MSK: Surgical dressing c/d/i. NEUROLOGICAL: Cranial nerves II through XII grossly intact. Normal speech. 4/5 b /l hip flexion. 5/5 b/l knee flexion/extension, dorsiflexion/plantarflexion PSYCH: Normal mood, normal affect. SKIN: Warm, dry, normal turgor, no rashes or lesions noted CBCD WBC 9.7 K/mm3 (4.0-10.0) 11/03/18 06:00 RBC 3.89 M/mm3 (4.00-5.60) L 11/03/18 06:00 Hgb 11.2 GM/dL (11.7-16.9) L 11/03/18 06:00 Hct 34.2 % (35.4-49) L 11/03/18 06:00 MCV 88.0 fl (80-96) 11/03/18 06:00 MCHC 32.8 g/dl (32.0-35.9) 11/03/18 06:00 RDW 14.0 % (11.9-15.9) 11/03/18 06:00 Plt Count 206 K/MM3 (134-434) 11/03/18 06:00 MPV 7.9 fl (7.5-11.1) 11/03/18 06:00 CMP Sodium 137 mmol/L (136-145) 11/03/18 06:00 Potassium 3.9 mmol/L (3.5-5.1) 11/03/18 06:00 Chloride 102 mmol/L (98-107) 11/03/18 06:00 Carbon Dioxide 30 mmol/L (21-32) 11/03/18 06:00 Anion Gap 5 MMOL/L (8-16) L 11/03/18 06:00 BUN 11 mg/dL (7-18) 11/03/18 06:00 Creatinine 1.0 mg/dL (0.55-1.3) 11/03/18 06:00 Creat Clearance w eGFR > 60 (>60) 11/03/18 06:00 Calcium 7.9 mg/dL (8.5-10.1) L 11/03/18 06:00 Active Medications Diphenhydramine HCl (Benadryl Injection -) 50 mg IVPUSH Q6H PRN PRN Reason: FOR ITCHING Docusate Sodium (Colace -) 100 mg PO DAILY [facility] Last Admin: 11/03/18 09:45 Dose: 100 mg Ondansetron HCl (Zofran Injection) 4 mg IVPUSH Q6H PRN PRN Reason: NAUSEA AND/OR VOMITING Oxycodone HCl (Roxicodone -) 5 mg PO Q4H PRN PRN Reason: PAIN LEVEL 1-5 Oxycodone HCl (Roxicodone -) 10 mg PO Q4H PRN PRN Reason: PAIN LEVEL 6-10 Last Admin: 11/03/18 11:46 Dose: 10 mg Polyethylene Glycol (Miralax (For Daily Use) -) 17 gm PO BID [facility] Last Admin: 11/03/18 09:45 Dose: 17 gm Senna (Senna -) 1 tab PO BID [facility] Last Admin: 11/03/18 09:44 Dose: 1 tab Tramadol HCl (Ultram -) 50 mg PO Q6H PRN PRN Reason: PAIN LEVEL 4 - 6 ASSESSMENT/PLAN: 43M w/ PMHx chronic back pain s/p C3-C4 fusion w/ Dr. Frias 2 y/a, TMJ syndrome , migraines, GERD, HTN (not on medication w/ PCP's agreement), GERD, POD 0 s/p L4, L5, S1 laminectomies; L3 laminotomy; L4-L5, L5-S1 discectomies; L4-L5, L5- S1 PLIF; insertion L4-L5, L5-S1 biomechanical devices; L4-L5, L5-S1 posterior arthrodesis; L4-L5, L5-S1 posterior instrumentation. #Lumbar stenosis/L4-S1 LE radiculopathy; s/p L4-S1 laminectomies; L3 partial laminectomy; L4-L5, & L5-S1 PLIF, L4-S1 PISF POD #1. -Oxycodone 10 mg PO Q4H for pain/5 Q4H for pain -Zofran 4 mg Q6H IVP for nausea -Tramadol 50 mg PO Q6H PRN for pain -Toradol given once, void frequent doses due to increased risk of bleed post-op -Benadryl for itching -Miralax/Senna/Colace for constipation -PT/IS #Prophylaxis DVT- SCDs/TEDs #FEN -PO hydration -recheck lytes in AM -regular diet dispo -cont to monitor on med-surg -full code -d/c planning; pt would like to do outpatient PT Visit type - Emergency Visit Emergency Visit: Yes ED Registration Date: 10/31/18 Care time: The patient presented to the Emergency Department on the above date and was hospitalized for further evaluation of their emergent condition. - New Patient This patient is new to me today: No - Critical Care Critical Care patient: No
[2018-11-03] MEDS ORDERED: KETOROLAC TROMETHAMINE 30 MG/1 ML VIAL IVPUSH ONE (19:11)
[2018-11-03] MEDS ORDERED: CHLORHEXIDINE GLUCONATE 4% CLEANSER FOR DECOLONIZATION TP SCH (22:00)
[2018-11-04] MEDS: oxyCODONE HCL 5 MG TABLET PO PRN (05:30)
[2018-11-04] MEDS: POLYETHYLENE GLYCOL 3350 119 GM BTL PO SCH (09:37)
[2018-11-04] MEDS: DOCUSATE SODIUM 100 MG CAPSULE (FP) PO SCH (09:37)
[2018-11-04] MEDS: SENNOSIDES 8.6MG TABLET (FP) PO SCH (09:37)
[2018-11-04 11:31] VITALS: TEMP 98.1
[2018-11-04] MEDS ORDERED: MINERAL OIL ENEMA 133 ML ENEMA PR ONE (13:49)
[2018-11-04 14:06] VITALS: BP 127/85; PULSE 97
--- NOTE | 2018-11-04 14:57 | PN ---
Teaching Attending Note Name of Resident: Elizabeth Loaiza ATTENDING PHYSICIAN STATEMENT I saw and evaluated the patient. I reviewed the resident's note and discussed the case with the resident. I agree with the resident's findings and plan as documented. SUBJECTIVE: painimproved , urinating well . no fever OBJECTIVE: NAD CV: RRR Lungs: CTAB ABd: soft, NT, ND , NL BS Ext: no edema Neuro of LE : strength 5/5 in hip flexion bilaterally . knee flexion and extension, ankle dorsiflexionand plantarflexion 5/5 reflexes 2+ knee jerk b/l. nL sensation to light touch. lumbar area dressing clean and dry ASSESSMENT AND PLAN: 43 Y/O man with h/o spinal stenosis, who presented for spinal surgery 1- S/p Lumbar sx: - bowel regimen - walker at home - [facility] : received percocet 10-325 mg q 4 hr on 10/03 ,he should have 4 day worth of this med . will not prescribe narcotics at dc dc home . f/u pCP and Dr. Frias
--- NOTE | 2018-11-04 15:15 | DS ---
Physical Exam: SUBJECTIVE: Patient seen and examined at bedside. No acute events overnight. OBJECTIVE: Vital Signs Temperature 98.1 F 11/04/18 14:04 Pulse Rate 97 H 11/04/18 14:04 Respiratory Rate 18 11/04/18 14:04 Blood Pressure 127/85 11/04/18 14:04 O2 Sat by Pulse Oximetry (%) 96 11/04/18 09:00 PHYSICAL EXAM GENERAL: AAOx3. NAD. HEENT: AT/NC. EOMI. TE. EOMI. Moist mucus membranes. NECK: Trachea midline, full range of motion, supple. No LAD. LUNGS: CTA B/L. No wheezes noted. HEART: RRR. Normal S1, S2. No murmurs noted. ABDOMEN: Soft, NT/ND. +BS in all 4Q's. EXTREMITIES: 2+ pulses, warm, well-perfused, no edema. Surgical dressing c/d/i. MSK: Surgical dressing c/d/i. NEUROLOGICAL: Cranial nerves II through XII grossly intact. Normal speech. 4/5 b /l hip flexion. 5/5 b/l knee flexion/extension, dorsiflexion/plantarflexion PSYCH: Normal mood, normal affect. SKIN: Warm, dry, normal turgor, no rashes or lesions noted LABS HOSPITAL COURSE: Date of Admission:10/31/18 43M w/ PMHx chronic back pain s/p C3-C4 fusion w/ Dr. Frias 2 y/a, TMJ syndrome , migraines, GERD, HTN (not on medication w/ PCP's agreement), GERD, POD 0 s/p L4, L5, S1 laminectomies; L3 laminotomy; L4-L5, L5-S1 discectomies; L4-L5, L5- S1 PLIF; insertion L4-L5, L5-S1 biomechanical devices; L4-L5, L5-S1 posterior arthrodesis; L4-L5, L5-S1 posterior instrumentation. Pt underwent surgery with no complications. He was monitored post-op and given meds for pain control. During hospital stay, pt's symptoms improved. He was discharged home and advised to follow up with ortho and his PCP for follow up. He was also advised to continue PT outpatient. Date of Discharge: 11/04/18 Minutes to complete discharge: 36 Discharge Summary Reason For Visit: SPINAL STENOSIS, LUMBAR REGION Condition: Improved - Instructions Diet, Activity, Other Instructions: You came to the hospital for lower back pain. You were seen by an orthopedic surgeon and found to have multiple cervical herniated discs, cervical spinal stenosis, and cervical myelopathy. You underwent orthopedic surgery on your cervical spine with Dr. Frias. You were seen by physical therapy afterwards and your symptoms improved. You are being discharged home. MEDICAL RECOMMENDATIONS You have previously been given a prescription for Percocet on 10/03 . you should still have 4 day worth of pills. take it as prescribed . If your pain is not controlled, please call Dr. Frias's office at . Take stool softeners to avoid constipation. You have also been given a prescription for a walker. if you need to talk tylenol, please be aware that percocet has 325 mg of tylenol in each pill. do not exceed 4 grams of tylenol in 24 hour period CONSULT RECOMMENDATIONS Please follow up with [facility] [place] office Wednesday11/11/2017; call for appointment; . Please also follow up with your primary care physician, Dr. Adriana Cohn within 1 week. WOUND CARE: Keep your surgical dressing on until your appointment with Dr. Frias next week. The bandage is waterproof, you may shower with it on. Please do not remove the bandage until your visit with Dr. Frias on November 08, 2018. If you have any questions about the wound, the pain, and the dressing, please call Dr. Frias's office. Please continue physical therapy after discharge. GENERAL If you experience worsening chest pain, shortness of breath, persistent numbness /tingling, weakness in your extremities or other associated symptoms, please proceed to your nearest emergency room immediately. Referrals: Adriana Cohn MD [Other] - 1 Week Go Frias MD [Staff Physician] - 1 Week Disposition: HOME - Home Medications Comprehensive Discharge Medication List: Ambulatory Orders Oxycodone HCl/Acetaminophen [Percocet 5-325 mg Tablet] 1 tab PO PRN PRN Docusate Sodium [Colace -] 100 mg PO BID #60 capsule 11/04/18 Polyethylene Glycol 3350 [Miralax (For Daily Use) -] 17 gm PO DAILY PRN #1 bottle 11/04/18 Sennosides [Senna] 8.6 mg PO BID PRN #30 tablet 11/04/18 Walker [Ultra-Light Rollator] 1 each ASDIR #1 each 11/04/18 This patient is new to me today: Yes Date on this admission: 11/08/18 Emergency Visit: Yes ED Registration Date: 10/31/18 Care time: The patient presented to the Emergency Department on the above date and was hospitalized for further evaluation of their emergent condition. Critical Care patient: No - Discharge Referral Referred to [facility] No
== END 2018-11-04 15:31 | disposition home or self-care (01) | DRG 304 ==
LOC: JSAMEDAYSX 06:15 → JICU 16:20 → J8W 11-01 19:10
PROVIDERS: ADMIT Orthopaedic Surgery Orthopaedic Surgery of the Spine; ATTEND Internal Medicine
PROC: 0SG30AJ Fusion of Lumbosacral Joint with Interbody Fusion Device, Posterior Approach, Anterior Column, Open Approach (ICD-10-PCS; 2018-10-31)
PROC: 0ST20ZZ Resection of Lumbar Vertebral Disc, Open Approach (ICD-10-PCS; 2018-10-31)
PROC: 0ST40ZZ Resection of Lumbosacral Disc, Open Approach (ICD-10-PCS; 2018-10-31)
PROC: 0QB30ZZ Excision of Left Pelvic Bone, Open Approach (ICD-10-PCS; 2018-10-31)
PROC: B01BZZZ Fluoroscopy of Spinal Cord (ICD-10-PCS; 2018-10-31)
PROC: 4A1004G Monitoring of Central Nervous Electrical Activity, Intraoperative, Open Approach (ICD-10-PCS; 2018-10-31)
PROC: 0SG00AJ Fusion of Lumbar Vertebral Joint with Interbody Fusion Device, Posterior Approach, Anterior Column, Open Approach (ICD-10-PCS; principal; 2018-10-31 08:00)
DX: M48.062 Spinal stenosis, lumbar region with neurogenic claudication (principal); M51.17 Intervertebral disc disorders with radiculopathy, lumbosacral region; M26.69 Other specified disorders of temporomandibular joint; R52 Pain, unspecified; I10 Essential (primary) hypertension; G43.809 Other migraine, not intractable, without status migrainosus; K21.9 Gastro-esophageal reflux disease without esophagitis; E83.39 Other disorders of phosphorus metabolism; Q76.49 Other congenital malformations of spine, not associated with scoliosis; Z29.9 Encounter for prophylactic measures, unspecified; Z98.890 Other specified postprocedural states
CPT/HCPCS: 36415; 76000-TC-FY; 80048; 82962; 83735; 84100; 85025; 85027; 86850; 86900; 86901; 88304-TC; 94760; 97116-GP; 97161-GP; J0131; J1644

== ENCOUNTER 2022-01-23 08:09 | Day surgery (SDC) | payer OTHER ==
[2022-01-20 11:40] VITALS: BMI 34.7
[2022-01-23] MEDS ORDERED: MIDAZOLAM HCL 2 MG/2 ML SINGLE DOSE VIAL ONE (09:43)
[2022-01-23] MEDS ORDERED: PROPOFOL 20 ML ONE ×2 (09:44)
[2022-01-23] MEDS ORDERED: DEXAMETHASONE SOD PHOSPHATE 4 MG/1 ML VIAL ONE (09:45)
[2022-01-23] MEDS ORDERED: LIDOCAINE HCL 2% JELLY (5 ML/TUBE) ONE (09:45)
[2022-01-23] MEDS ORDERED: LIDOCAINE HCL/PF 2% SDV 5ML VIAL ONE (09:45)
[2022-01-23] MEDS ORDERED: KETOROLAC TROMETHAMINE 30 MG/1 ML VIAL ONE (09:45)
[2022-01-23] MEDS ORDERED: ONDANSETRON 4 MG/2 ML VIAL ONE ×2 (09:45→10:54)
[2022-01-23] MEDS ORDERED: ceFAZolin SODIUM 1 GM VIAL ONE (09:45)
[2022-01-23] MEDS ORDERED: SUCCINYLCHOLINE CHLORIDE 200 MG/10 ML SYRINGE ONE (09:45)
[2022-01-23] MEDS ORDERED: oxyCODONE HCL 5 MG TABLET PO PRN ×2 (10:52)
[2022-01-23] MEDS ORDERED: ONDANSETRON 4 MG/2 ML VIAL IVPUSH PRN (10:52)
[2022-01-23] MEDS ORDERED: oxyCODONE HCL 5 MG TABLET ONE (12:14)
[2022-01-23 12:19] VITALS: TEMP 98.2
[2022-01-23 12:28] VITALS: BP 140/90; PULSE 92
== END 2022-01-23 12:50 | disposition home or self-care (01) ==
LOC: FASU 08:09
PROVIDERS: ATTEND Orthopaedic Surgery Orthopaedic Surgery of the Spine
PROC: 0JBD0ZZ Excision of Right Upper Arm Subcutaneous Tissue and Fascia, Open Approach (ICD-10-PCS; 2022-01-23)
PROC: 0L830ZZ Division of Right Upper Arm Tendon, Open Approach (ICD-10-PCS; principal; 2022-01-23 10:14)
DX: M77.11 Lateral epicondylitis, right elbow (principal)
CPT/HCPCS: 94760